=== PATIENT | female | born 1945 | race Caucasian/White ===

== ENCOUNTER 2019-05-24 12:04 | Inpatient (IN) ==
[2019-05-24] MEDS ORDERED: ATIVAN IV ONE (14:10)
[2019-05-24 14:13] LABS: URINE SOURCE CLEAN CATCH
--- NOTE | 2019-05-24 14:19 | Diag Imaging Result Doc PS360 ---
EXAM: CHEST-1 VIEW HISTORY: pre-op TECHNIQUE: Single view COMPARISON: 03/27/2017 FINDINGS: The lungs are well expanded. The right hemidiaphragm is elevated. The heart is not enlarged. The vessels are not distended. There are no infiltrates. No effusion identified. IMPRESSION: Negative exam. Electronically signed by Chucky Gold 05/24/2019 2:17 PM
[2019-05-24 14:21] LABS: BILIRUBIN URINE NEGATIVE (NEGATIVE); BLOOD URINE SMALL (NEGATIVE); COLOR YELLOW; GLUCOSE URINE NEGATIVE (NEGATIVE); KETONE URINE NEGATIVE (NEGATIVE); LEUKOCYTES URINE MODERATE (NEGATIVE); NITRITE URINE NEGATIVE (NEGATIVE); PH URINE 5.5; PROTEIN URINE TRACE mg/dL (NEGATIVE); SP GRAVITY URINE 1.009; TURBIDITY URINE HAZY (CLEAR); UROBILINOGEN URINE NORMAL (NORMAL)
[2019-05-24] MEDS ORDERED: ZOFRAN IV PRN (14:28)
[2019-05-24] MEDS ORDERED: OXY IR PO PRN (14:30)
[2019-05-24 14:32] LABS: UR EPITHELIAL CELLS <10 /HPF (<10); URINE BACTERIA NEGATIVE /HPF; URINE RBC <10 /HPF (<10); URINE WBC 20-40 /HPF (<10)
--- NOTE | 2019-05-24 14:36 | PROVIDER DOCUMENTATION ---
This chart was entered by Maddison Brown Scribe, acting as scribe for Yogi Iniguez MD. HPI-Musculoskeletal Pain/Inj - GENERAL Chief Complaint: Extremity Injury Stated Complaint: HIP PAIN-FALL@HOME Time Seen by Provider: 05/24/19 13:00 Source: patient - HX OF PRESENT ILLNESS-MUSKULOSKELTAL Nature of Presenting Problem: Patient is a 74 year old female who presents with left hip pain. States she slipped and fell landing on left hip. Reports being seen by PCP and had a xray that showed a left hip fracture. Quality of Pain: reports: aching Severity in ED: mild Onset/Duration: this morning Timing: still present Any recent injury?: Yes (fall ) Locality of Occurance: Home Similar Symptoms Previously?: Yes Recently seen or treated by another doctor?: Yes - FALL INJURY Location of Pain/Injury: reports: other (left hip) Pain Radiation: reports: no radiation Reason for Fall: reports: slipped Loss of Consciousness: no loss of consciousness - HIP/PELVIS PAIN/INJURY Hip Pain Location: reports: hip (L) Pain Radiation: reports: no radiation Context / Method of Injury: reports: fall - LOWER EXTREMITY PAIN/INJURY Lower Extremities Pain: hip: left Context / Method of Injury: reports: fell Review of Systems - Adult - REVIEW OF SYSTEMS - ADULT Constitutional: reports: no symptoms reported Eyes: reports: no symptoms reported Ears, Nose, Mouth & Throat: reports: no symptoms reported Cardiovascular: reports: no symptoms reported Respiratory: reports: no symptoms reported Gastrointestinal: reports: no symptoms reported Genitourinary: reports: no symptoms reported Musculoskeletal: reports: see HPI, other (left hip pain). denies: back pain, neck pain Integumentary: reports: no symptoms reported Neurological: reports: no symptoms reported Psychiatric: reports: no symptoms reported Endocrine: reports: no symptoms reported Hematologic/Lymphatic: reports: no symptoms reported Allergic/Immunologic: reports: no symptoms reported All Other Systems: Reviewed and Negative Past History - Adult - PAST MEDICAL HISTORY-ADULT Review of Records: reports: Old Records Reviewed, Nursing Assessment Review, Medications Reviewed, Social history reviewed & non-contributory. Major Childhood Illnesses: reports: denies history Cardiovascular: reports: denies history Respiratory: reports: denies history Gastrointestinal: reports: denies history Obstetrical/Gynecological: reports: denies history Genitourinary: reports: denies history Musculoskeletal: reports: denies history Neurological: reports: denies history Endocrine/Immune: reports: denies history Other Conditions: reports: denies history - IMMUNIZATION STATUS Childhood Immunizations: See Nurse Assessment Flu Vaccine: See Nurse Assessment - FAMILY HISTORY Family History: reviewed, not pertinent Physical Exam-Injury Related - Physical Exam-Injury Related Initial Vital Signs Reviewed: Yes General Appearance: alert, no apparent distress. negative: obtunded Head, Ears, Nose, Mouth & Throat: normocephalic/atraumatic, moist mucous membranes. negative: angioedema Neck: non-tender, full range of motion, normal inspection. negative: C-spine tenderness, limited range of motion Respiratory: chest non-tender, lungs clear, normal breath sounds. negative: wheezing, increased rate Cardiovascular: regular rate, rhythm, no murmur. negative: tachycardia Abdominal Exam: normal bowel sounds, non tender, soft. negative: rigid Extremity: tenderness (left groin), other (decreased ROM to left leg due to left hip pain). negative: pulse deficit Integumentary: normal color, warm/dry. negative: abrasion, laceration Neurologic: grossly normal. negative: aphasia, facial droop, sensory deficit Psych/Mental Status: normal mood/affect, oriented x 3. negative: anxious Progress - PLAN OF CARE/RESULTS Progress/Plan/Lab Results: Vital Signs - 8 hr 05/24/19 12:19 Temperature 98.4 F Pulse Rate 63 Respiratory Rate 16 Blood Pressure 169/80 O2 Sat by Pulse Oximetry 96 Laboratory Results - last 24 hr 05/24/19 05/24/19 13:14 14:04 POC Glucose 123 H Urine Source CLEAN CATCH Urine Color YELLOW Urine Turbidity HAZY Urine pH 5.5 Ur Specific [place] 1.009 Urine Protein TRACE A Ur Glucose (Stick) NEGATIVE Ur Ketones (Stick) NEGATIVE Urine Blood SMALL A Urine Nitrite NEGATIVE Urine Bilirubin NEGATIVE Urobilinogen Dipstick NORMAL Urine Leukocytes MODERATE A Urine WBC (Auto) 20-40 A Urine RBC (Auto) <10 U Epithel Cells (Auto) <10 Urine Bacteria (Auto) NEGATIVE Urine Crystals NONE SEEN Small Round Cells TRANS PRESENT Urine Casts NONE SEEN Urine Yeast-like Cells NONE SEEN Orders Category Date Time Status Admit [facility] Routine AdmDCTranf 05/24/19 14:28 Active Activity - Strict Bedrest ORDERED Care 05/24/19 14:28 Active FSBS/Accucheck Result AC + HS Care 05/24/19 14:28 Active Ricci Cath Insertion ORDERED Care 05/24/19 14:34 Active IV [Saline Loc] NOW Care 05/24/19 14:34 Active Intake and Output-Strict ORDERED Care 05/24/19 14:28 Active Nursing- MD Consult Request ROUTINE Care 05/24/19 14:30 Active Update & Confirm Home Medicati ROUTINE Care 05/24/19 14:34 Active Vital Signs Order Q 8-HR ASSESS Care 05/24/19 14:28 Active Z-Document. for Tele Applied ORDERED Care 05/24/19 14:30 Active Physician/Provider Consults Routine Cons 05/24/19 14:28 Ordered NPO Diet 05/24/19 13:59 Active CHEST-1 VIEW [RAD] Stat Exams 05/24/19 14:00 Completed CBC WITH DIFF [HEME] Routine Lab 05/25/19 06:00 Ordered CBC WITH ELECTRONIC DIFF [HEME] Stat Lab 05/24/19 13:59 Ordered COMPREHENSIVE METABOLIC PANEL [CHEM] Routine Lab 05/25/19 06:00 Ordered COMPREHENSIVE METABOLIC PANEL [CHEM] Stat Lab 05/24/19 13:59 Ordered FOLATE Routine Lab 05/24/19 14:31 Ordered FREE T4 Routine Lab 05/24/19 14:31 Ordered PROTIME WITH INR [COAG] Stat Lab 05/24/19 13:59 Ordered PTT [COAG] Stat Lab 05/24/19 13:59 Ordered TSH Routine Lab 05/25/19 06:00 Ordered URINALYSIS W/POSS RFLX CULT [URINALYSIS] Stat Lab 05/24/19 14:04 Completed URINE CULTURE [RM] Routine Lab 05/24/19 14:39 Ordered URINE MANUAL MICROSCOPIC [URINALYSIS] Stat Lab 05/24/19 14:04 Completed VITAMIN B12 Routine Lab 05/24/19 14:35 Ordered 0.9% Sodium Chloride Inj [Ns] 1,000 ml Med 05/24/19 14:45 Active IV 75 mls/hr Insulin Lispro [Humalog] Med 05/24/19 16:00 Active See Protocol SUBQ 0700,1100,1600,2100 Lorazepam [Ativan] Med 05/24/19 14:10 Discontinued 0.5 mg IV NOW ONE Lorazepam [Ativan] Med 05/24/19 14:32 Active 0.5 mg PO Q6H PRN PRN Ondansetron [Zofran] Med 05/24/19 14:28 Active 4 mg IV Q4H PRN PRN Oxycodone I.r. [Oxy Ir] Med 05/24/19 14:30 Active 5 mg PO Q4H PRN PRN Pantoprazole [Protonix] Med 05/24/19 15:00 Active 40 mg IV Q24H Sodium Chloride 0.9% Med 05/24/19 14:45 Active 10 ml INJ DIRECTED Telemetry [OM.EQ] Routine Oth 05/24/19 14:28 Active EKG [EKG] Stat Ther 05/24/19 13:59 Ordered Transfer/Admit Order [TRANSFER] Routine Transfer 05/24/19 14:36 Ordered - CONSULTS/PCP/HOSPITALIST Notification #1 *Consult/PCP/Hospitalist*: cecy/w YASMANI Zhou Time Discussed: 14:50 Consult Disposition: Admit #2 Consult: paged Dr Castillo Time Discussed: 14:50 Consult Disposition: other (call back @ 15:[address] George office, will see pt in hospital) Departure - Departure Date of Disposition Decision: 05/24/19 Time of Disposition Decision: 15:00 DIAGNOSIS: Subcapital fracture of left hip Disposition: ADMITTED INPATIENT 09 Certified Medical Emergency: Emergent Condition: Stable - Critical Care Note This patient required my direct & personal management of CC.: No Attestation - Physician/ [place] Attestation Patient care was provided by Advanced Practice Provider:: No The physician spent face to face time with patient:: Yes Advanced Practice Provider documentation review:: Supervising physician onsite and consulted in the evaluation and care of this patient. The physician did have a face to face encounter with the patient. This chart was documented by the indicated scribe, (Maddison Brown Scribe) and accurately reflects the services I performed and decisions made by , Yogi Iniguez MD, as attested by the provider's signature.
[2019-05-24 14:38] LABS: URINE CASTS NONE SEEN; URINE CRYSTALS NONE SEEN; URINE SMALL ROUND CELLS TRANS PRESENT; URINE YEAST NONE SEEN
--- NOTE | 2019-05-24 14:51 | HISTORY AND PHYSICAL ---
HISTORY OF PRESENT ILLNESS: She fell and suffered a left hip fracture, had left hip pain. She had a subcapital left femoral neck fracture. She did not lose consciousness, and she has no history of neurologic pathology, such as seizures or stroke in the past. She has hypertension, and I believe she is treated for diabetes. PAST SURGICAL HISTORY: I think she has had a hysterectomy and tubes tied. ALLERGIES: She has no known drug allergies. FAMILY HISTORY: They do not report any coronary or heart or lung or kidney disease. No trouble with anesthesia. SOCIAL HISTORY: Negative for alcohol and tobacco. No illicit drugs. Lives in [place]. REVIEW OF SYSTEMS: General: No weight gain or loss. No fever or chills. HEENT: Unremarkable. Respiratory: No increased work of breathing or dyspnea. Cardiovascular: No chest pain or tachy palpitation. Gastrointestinal/Genitourinary: No gross hematuria, dysuria. Musculoskeletal/Neurologic: No significant complaints. Endocrinologic/Hematologic: No significant history. PHYSICAL EXAMINATION: GENERAL: Awake, alert, well-developed, well-nourished, white female with no acute distress. HEENT: Pupils are equal and round. LUNGS: Clear in all lung law. CARDIOVASCULAR: Regular rhythm and rate without murmur or S3. ABDOMEN: Soft. SKIN: Warm and dry. EXTREMITIES: Left hip with some swelling. I externally rotated her foot, and some shortening compared to the right. VITAL SIGNS: Temperature 98.4 degrees, pulse 63, respirations 16, blood pressure 169/80. IMAGING AND LABORATORY DATA: Urine unremarkable. Chest x-ray negative. No sign of infiltrates. ASSESSMENT AND PLAN: Left hip fracture. Admit. Orthopedics to see. Will need open reduction internal fixation. Appears to be ready for surgery. Hemodynamically stable. Will continue her on her home medications. Will continue her on everything. She is on Cymbalta. I think we can hold the Zyrtec. Will keep her on her Lipitor. She takes Xanax 0.25 mg at night. Will let her have an Ativan 0.5 mg by mouth every hours as needed as she is having a hard time, she recently lost her , and a lot of anxiety. We are going to check a T4, TSH, B12, and folate, and will check a postoperative CBC. Her electrolytes and CBC, I think are pending at this time. We will give her some Oxy IR 5 mg by mouth every 3 hours as needed for pain, and she can have morphine at 2 mg intravenously every 3 hours as needed for severe pain. cc: Pranav Barrett MD
[2019-05-24] MEDS ORDERED: DILAUDID IV ONE (15:27)
[2019-05-24 16:03] LABS: BASO# 0.02 X1000 (0.0-0.2); BASO% 0.1 % (0.0-0.8); EOS# 0.02 X1000 (0.0-0.7); EOS% 0.1 % (0.0-10.0); HEMATOCRIT 41.3 % (37.0-47.0); HEMOGLOBIN 13.9 g/dL (12.0-16.0); IMM GRAN# 0.07 X1000 (0.0-0.04); IMM GRAN% 0.4 % (0.0-0.5); LYMPH# 1.22 X1000 (1.2-3.4); LYMPH% 7.1 % (20.5-51.1); MCH 29.3 PG (27-31); MCHC 33.7 g/dL (33-37); MCV 87.1 FL (81-99); MONO# 1.15 X1000 (0.11-0.59); MONO% 6.7 % (1.7-9.3); MPV 10.4 FL (7.4-10.4); NEUT# 14.81 X1000 (1.4-6.5); NEUT% 85.6 % (42.2-75.2); PLT 253 X1000 (130-400); RBC 4.74 XMIL (4.2-5.4); RDW 13.5 % (11.5-14.5); WBC 17.29 X1000 (4.8-10.8)
[2019-05-24 16:08] LABS: INR 1.03; PROTIME 13.7 Seconds (11.0-16.0)
[2019-05-24 16:09] LABS: PTT 26.7 Seconds (22.3-41.8)
[2019-05-24 16:15] LABS: AGAP 14; ALB/GLOB RATIO 1.8; ALBUMIN 4.6 g/dL (3.5-5.0); ALKALINE PHOSPHATASE 58 U/L (32-104); BUN 8 mg/dL (8-22); CALCIUM 9.7 mg/dL (8.8-10.2); CHLORIDE 100 mmol/L (98-107); COSMO 277; CREATININE 0.8 mg/dL (0.5-0.9); ESTIMATED GFR > 60; GLUCOSE 151 mg/dL (70-104); GOT 19 U/L (10-30); GPT 22 U/L (10-36); POTASSIUM 4.4 mmol/L (3.5-5.1); SODIUM 138 mmol/L (136-145); TCO2 24 mmol/L (25-35); TOTAL PROTEIN 7.1 g/dL (6.3-8.3)
[2019-05-24] MEDS ORDERED: KEFZOL 2 GM/D5W 2 GM/50 ML IVPB IV ONE (16:42)
--- NOTE | 2019-05-24 16:45 | EKG Report ---
Test Performed on : 05/24/2019 3:29:23 PM Test Reason : CP Blood Pressure : / mmHG Vent. Rate : 064 BPM Atrial Rate : 064 BPM P-R Int : 196 ms QRS Dur : 082 ms QT Int : 414 ms P-R-T Axes : 066 044 075 degrees QTc Int : 427 ms Normal sinus rhythm. with sinus arrhythmia. Cannot rule out Anterior infarct , age undetermined Abnormal ECG No previous ECGs available Unconfirmed Result
[2019-05-24] MEDS: HUMALOG SUBQ SCH ×2 (17:08→21:45)
[2019-05-24] MEDS: PROTONIX IV SCH (17:17)
[2019-05-24] MEDS: NS 1,000 ML IV SCH (17:26)
--- NOTE | 2019-05-24 19:42 | ORTHOPAEDICS CONSULTATION ---
DATE: 05/24/2019 CHIEF COMPLAINT: Left hip pain. HISTORY OF PRESENT ILLNESS: This is a 74-year-old female who came to the emergency department today for left hip pain after a fall. She reports that she had accidentally slipped on some wrapping paper and landed on her left hip. She denies LOC. She denies pain in any other extremity or part of her body. PAST MEDICAL HISTORY: The patient reports that she is diabetic. ALLERGIES: There are no known drug allergies. FAMILY HISTORY: Not pertinent. SOCIAL HISTORY: Negative for tobacco and alcohol. No illicit drug use. REVIEW OF SYSTEMS: Fourteen point review of systems was performed. Pertinent positives listed in HPI. PHYSICAL EXAMINATION: Vital Signs: Temperature 98.5 degrees, pulse rate 93, respiratory rate 16, blood pressure 125/59, oxygen saturations 95. General: Patient is awake and alert and sitting in the bed in no acute distress. HEENT: Head is atraumatic, normocephalic. Eyes equal, round and reactive to light. Lungs: There is equal chest expansion, rise and fall. Cardiovascular: Regular rate and rhythm. Abdomen: Soft, nontender. Skin: Warm and dry. Extremities: Left lower extremity exam: There is some tenderness on the left lateral hip. There is good range of motion about the hip. There is no obvious shortening that I can see. LABS: White blood cells 17.29, hemoglobin 13.9, hematocrit 41.3, platelets 253,000. INR is 1.03. Sodium 138, potassium 4.4, chloride 100, BUN is 8, creatinine 0.6, glucose 151. Urine shows trace protein, small amount of blood and moderate leukocytes consistent possible UTI. X-RAY: Review of x-rays show a subcapital left femoral neck fracture. ASSESSMENT: Left subcapital femoral neck fracture. PLAN: We will plan to do a percutaneous pinning of the left hip tomorrow around 0900. The patient agrees with this plan. The risks and benefits of surgery was went over with the patient. We will keep her NPO after midnight. She denies taking any type of blood thinner. She reports that she does take an aspirin 81 mg daily. We will see her in the morning for her surgery and check back on her afterwards. Dictated by YASMANI Bingham for Eric George MD cc: YASMANI Bingham MD
[2019-05-24] MEDS: OXY IR PO PRN (22:22)
[2019-05-25] MEDS: ATIVAN PO PRN ×2 (00:20→22:52)
[2019-05-25] MEDS: OXY IR PO PRN (04:12)
[2019-05-25] MEDS: NS 1,000 ML IV SCH ×3 (05:34→20:34)
[2019-05-25 06:38] LABS: BASO# 0.04 X1000 (0.0-0.2); BASO% 0.4 % (0.0-0.8); EOS# 0.44 X1000 (0.0-0.7); EOS% 4.2 % (0.0-10.0); HEMATOCRIT 39.1 % (37.0-47.0); IMM GRAN# 0.03 X1000 (0.0-0.04); IMM GRAN% 0.3 % (0.0-0.5); LYMPH# 1.81 X1000 (1.2-3.4); LYMPH% 17.2 % (20.5-51.1); MCH 29.2 PG (27-31); MCHC 33.2 g/dL (33-37); MCV 87.9 FL (81-99); MONO# 0.85 X1000 (0.11-0.59); MONO% 8.1 % (1.7-9.3); MPV 10.1 FL (7.4-10.4); NEUT# 7.35 X1000 (1.4-6.5); NEUT% 69.8 % (42.2-75.2); PLT 239 X1000 (130-400); RBC 4.45 XMIL (4.2-5.4); RDW 13.6 % (11.5-14.5); WBC 10.52 X1000 (4.8-10.8)
[2019-05-25] MEDS: HUMALOG SUBQ SCH ×4 (06:42→22:52)
[2019-05-25 07:15] LABS: AGAP 11; ALB/GLOB RATIO 1.8; ALBUMIN 3.9 g/dL (3.5-5.0); ALKALINE PHOSPHATASE 56 U/L (32-104); BUN 10 mg/dL (8-22); CALCIUM 8.6 mg/dL (8.8-10.2); CHLORIDE 104 mmol/L (98-107); COSMO 278; CREATININE 0.8 mg/dL (0.5-0.9); ESTIMATED GFR > 60; GLUCOSE 187 mg/dL (70-104); GOT 14 U/L (10-30); GPT 16 U/L (10-36); POTASSIUM 3.8 mmol/L (3.5-5.1); SODIUM 137 mmol/L (136-145); TCO2 22 mmol/L (25-35); TOTAL BILIRUBIN 0.46 mg/dL (0.20-1.00); TOTAL PROTEIN 6.1 g/dL (6.3-8.3)
[2019-05-25] MEDS ORDERED: XYLOCAINE-MPF 2% ONE (07:59)
[2019-05-25] MEDS ORDERED: DECADRON ONE ×2 (07:59→09:19)
[2019-05-25] MEDS ORDERED: TORADOL ONE (07:59)
[2019-05-25] MEDS ORDERED: ZOFRAN ONE ×2 (07:59→10:16)
[2019-05-25] MEDS ORDERED: DIPRIVAN 1% ONE (08:00)
[2019-05-25] MEDS ORDERED: FENTANYL ONE ×2 (08:00→10:38)
[2019-05-25] MEDS ORDERED: VERSED ONE (08:58)
[2019-05-25] MEDS ORDERED: KEFZOL 1 GM/D5W 2 GM/100 ML IVPB ONE (08:59)
[2019-05-25] MEDS ORDERED: MARCAINE 0.25% PF ONE (09:07)
[2019-05-25] MEDS ORDERED: OFIRMEV 1000 MG/ISOTONIC SOLN 1,000 MG/100 ML BOTTLE ONE (09:17)
[2019-05-25] MEDS ORDERED: ROBINUL ONE ×2 (09:27→09:31)
[2019-05-25] MEDS ORDERED: EPHEDRINE ONE (09:45)
[2019-05-25] MEDS ORDERED: OXY IR PO PRN (12:13)
[2019-05-25] MEDS ORDERED: MILK OF MAGNESIA PO PRN (12:13)
[2019-05-25] MEDS ORDERED: MORPHINE IV PRN (12:13)
[2019-05-25] MEDS ORDERED: ZOFRAN IV PRN (12:13)
[2019-05-25] MEDS ORDERED: HALDOL IV PRN (12:15)
[2019-05-25] MEDS ORDERED: NS 1,000 ML IV SCH (12:15)
--- NOTE | 2019-05-25 13:02 | OPERATIVE NOTE ---
PROCEDURE DATE: 05/25/2019 PREOPERATIVE DIAGNOSIS: Impacted left femoral neck fracture. POSTOPERATIVE DIAGNOSIS: Impacted left femoral neck fracture. PROCEDURE: Closed reduction percutaneous pinning, left hip. COMPLICATIONS: None. SURGEON: Jerod George MD ANESTHESIA: General. PROCEDURE IN DETAIL: 74-year-old female with an impacted left femoral neck fracture presents for surgical stabilization and fixation. Risks, benefits, and no guarantees were discussed and she is willing to proceed. She was taken the operating room and satisfactory anesthesia obtained. She was placed on the [place] table and left hip prepped and draped in usual sterile fashion. The fracture was imaged with fluoroscopic guidance and noted to be an impacted femoral neck fracture with minimal displacement. After prep and drape, a time-out was taken to confirm operative site, procedure, and patient. A 1 inch incision was made opposite the lesser trochanter on the lateral thigh and dissection carried down to the lateral aspect of the proximal femoral cortex. Under multiplanar image guidance, three 7.3 cannulated screws guidewires were advanced in a triangular fashion across the fracture in the femoral neck and into the femoral head. Three 80 length screws with partial threads were inserted over this with secure fixation of all 3 screws. The C-arm was used to verify accurate hardware placement as well as avoidance of any joint penetration. The guidewires were removed and the wound irrigated and cauterized and then closed in layers with #1 Vicryl in the deep fascia and skin adan on the skin. Sterile dressings were applied. She was recovered from anesthesia and transferred to the recovery room in stable condition. No intraoperative complications were noted. Instrument count and sponge count was correct at the time of closure. cc: Eric George MD
--- NOTE | 2019-05-25 14:25 | PROGRESS NOTE ---
DATE: 05/25/2019 Today Ms. Egan referred to be doing well. No new complaint except pain in the left hip. Ms. gEan refers that she sustained a mechanical fall trying to wrap up some gifts and then her feet got entangled with some of the papers and she fell, hitting the left side, was unable to get up immediately, was brought in and was evaluated, saw that she had a left subcapital femoral neck fracture. This morning she was sent to the OR. She underwent closed reduction and percutaneous pinning of the left hip by Dr. George. She seems to be doing remarkably well after the surgery. The son was at the bedside at the time of this encounter. OBJECTIVE: Vital signs: Blood pressure is 123/63, pulse of 79, respiration is 18, temperature is 98.6 degrees. General: Ms. Egan is a 74-year-old female. She is in bed, no distress. Mucosa is pink and moist. Anicteric. Acyanotic. Neck: Supple. Chest: Good air entry bilaterally. No crepitations. No rhonchi. Cardiovascular: Regular rate and rhythm. No murmurs, no rubs, no gallops. Abdomen: Soft, nontender. Bowel sounds present. Extremities: No pedal edema. The left hip has a dressing over the surgical incision and there is just mild postsurgical changes. LABORATORY DATA: CBC is completely unremarkable. Chemistry is also reviewed unremarkable. CURRENT MEDICATIONS: Have all been reviewed. ASSESSMENT: 1. Status post mechanical fall resulting into a left subcapital femoral neck fracture. Patient is status post closed reduction and percutaneous pinning of the left hip by Dr. George. The patient is just immediate postop. She seems to be doing well. There is a plan to hopefully get her to rehab. 2. Dyslipidemia. The patient is on atorvastatin. 3. Hypertension, controlled on lisinopril. 4. Diabetes mellitus. The patient is on Januvia and metformin at home. Metformin has been withheld. The patient is currently on insulin regimen. 5. The general plan is to get Physical Therapy to evaluate Ms. Egan tomorrow based on Orthopedics recommendation and we will get social work also to evaluate her for rehab placement, hopefully get Ms. Egan discharged within the next 24 to 48 hours. cc: Lars Vargas MD
[2019-05-25] MEDS: SODIUM CHLORIDE 0.9% INJ SCH (15:45)
[2019-05-25] MEDS: PROTONIX IV SCH (15:45)
[2019-05-25] MEDS: TYLENOL PO SCH ×2 (15:47→16:45)
[2019-05-25] MEDS: KEFZOL 1 GM/D5W 1 GM/50 ML IVPB IV SCH ×2 (15:48→16:47)
[2019-05-25] MEDS: COLACE PO SCH (20:33)
[2019-05-25] MEDS: DESYREL PO SCH (20:34)
[2019-05-25] MEDS: XANAX PO SCH (20:34)
[2019-05-25] MEDS: PERIDEX MT SCH (20:34)
[2019-05-26] MEDS: KEFZOL 1 GM/D5W 1 GM/50 ML IVPB IV SCH (02:01)
[2019-05-26 07:22] LABS: HEMATOCRIT 31.2 % (37.0-47.0); HEMOGLOBIN 10.5 g/dL (12.0-16.0)
[2019-05-26] MEDS ORDERED: XARELTO PO ONE (07:44)
[2019-05-26 07:51] LABS: AGAP 12; BUN 8 mg/dL (8-22); CALCIUM 8.7 mg/dL (8.8-10.2); CHLORIDE 103 mmol/L (98-107); COSMO 276; CREATININE 0.6 mg/dL (0.5-0.9); ESTIMATED GFR > 60; GLUCOSE 166 mg/dL (70-104); POTASSIUM 4.1 mmol/L (3.5-5.1); SODIUM 137 mmol/L (136-145); TCO2 22 mmol/L (25-35)
--- NOTE | 2019-05-26 07:52 | ORTHOPAEDICS PROGRESS NOTE ---
DATE: 05/26/2019 SUBJECTIVE: The patient is a pleasant 74-year-old female who is 1 day status post closed reduction percutaneous pinning left hip per Dr. George. She is currently resting comfortably. OBJECTIVE: On physical exam, patient's left hip has dressing intact. Calf is soft. She has active dorsiflexion and plantar flexion. IMPRESSION: Postop day #1 status post closed reduction percutaneous pinning left hip. PLAN: At this point we will consult Spear Fisher for discharge planning. The patient will be partial weightbearing left lower extremity. cc: Zi Stone MD
[2019-05-26] MEDS: TYLENOL PO SCH ×3 (08:10→21:31)
[2019-05-26] MEDS: HUMALOG SUBQ SCH ×4 (08:12→21:00)
[2019-05-26] MEDS: NS 1,000 ML IV SCH (09:05)
[2019-05-26 09:27] LABS: HEMOGLOBIN A1C 6.4 % (4.8-6.0)
--- NOTE | 2019-05-26 10:23 | PROGRESS NOTE ---
DATE: 05/26/2019 SUBJECTIVE: This morning Ms. Pa refers to be doing a lot better. Denies any new complaints. She said Orthopedics has already come to evaluate her. She has not had any bowel movement for the past 2 days. There was no family member at the bedside at the time of the encounter. OBJECTIVE: Vital Signs: Blood pressure is 122/72, pulse 67, respiration is 18, temperature is 97.9 degrees. General: Ms. Pa is a 74-year-old female. She is in bed in no distress. HEENT: Mucosa is pink and moist. Anicteric. Acyanotic. Neck: Supple. Chest: Good air entry bilateral. Did not hear any crepitations, no rhonchi. Cardiovascular: Regular rate and rhythm. No murmurs, no rubs, no gallops. GI: Abdomen is soft, slightly distended but nontender. Bowel sounds present. There is an old infraumbilical surgical scar. Extremities: No pedal edema. There is a recent sterile dressing over the left hip from the recent orthopedic intervention. MANAGER LOCATION: Patient is awake, alert, oriented. There is no focal neurological deficit. The patient is neurovascularly intact on the left lower extremity. LABORATORY DATA: Laboratory data has been reviewed. Hemoglobin is 10.5. Chemistry is completely unremarkable. Patient's A1c is 6.4. Microbiology data shows urine culture is no growth. CURRENT MEDICATIONS: Have all been reviewed. No changes. The patient has been started on Xarelto for DVT prophylaxis after orthopedic surgery. ASSESSMENT: 1. Status post mechanical fall resulting into a left subcapital femoral neck fracture. Patient is status post closed reduction and percutaneous pinning of the left hip. Today is day 1 postop. 2. Diabetes mellitus with A1c of 6.4. The patient is currently on her oral hypoglycemic agent. Metformin has been withheld, however. 3. Hypertension, controlled on lisinopril. 4. Dyslipidemia. Patient is on atorvastatin. 5. Deep venous thrombosis prophylaxis after orthopedic surgery with Xarelto will be initiated tomorrow. 6. Constipation. Patient has been started on Colace and milk of magnesia. We will wait for adequate response. PLAN: So for today Ms. Pa is doing fairly okay. We will be waiting on physical therapy evaluation. She seems to be slightly constipated, so she has been started on a bowel regimen. We will hopefully be able to remove the Ricci catheter tomorrow and plan her discharge to rehab within the next 24 to 48 hours. cc: Lars Vargas MD
[2019-05-26] MEDS: JANUVIA PO SCH (10:57)
[2019-05-26] MEDS: PERIDEX MT SCH ×2 (10:57→21:30)
[2019-05-26] MEDS: ZYRTEC PO SCH (10:57)
[2019-05-26] MEDS: FERROUS SULFATE PO SCH (10:58)
[2019-05-26] MEDS: ASPIRIN PO SCH (10:58)
[2019-05-26] MEDS: CYMBALTA PO SCH (11:05)
[2019-05-26] MEDS: BENEFIBER PACKET PO SCH (17:06)
[2019-05-26] MEDS: SODIUM CHLORIDE 0.9% INJ SCH (17:06)
[2019-05-26] MEDS: PROTONIX IV SCH (17:06)
[2019-05-26] MEDS ORDERED: LIPITOR PO SCH (21:00)
[2019-05-26] MEDS: COLACE PO SCH (21:30)
[2019-05-26] MEDS: XANAX PO SCH (21:30)
[2019-05-26] MEDS: DESYREL PO SCH (21:31)
[2019-05-27] MEDS: ATIVAN PO PRN (00:18)
[2019-05-27] MEDS ORDERED: XARELTO PO SCH (06:00)
[2019-05-27] MEDS: TYLENOL PO SCH (06:42)
[2019-05-27] MEDS: HUMALOG SUBQ SCH ×2 (07:00→12:40)
[2019-05-27 07:06] LABS: HEMATOCRIT 30.3 % (37.0-47.0); HEMOGLOBIN 10.3 g/dL (12.0-16.0)
[2019-05-27 08:33] VITALS: BP 141/67
[2019-05-27] MEDS: FERROUS SULFATE PO SCH (08:35)
[2019-05-27] MEDS: CYMBALTA PO SCH (08:35)
[2019-05-27] MEDS: PERIDEX MT SCH (08:35)
[2019-05-27] MEDS: ASPIRIN PO SCH (08:35)
[2019-05-27] MEDS: JANUVIA PO SCH (08:35)
[2019-05-27] MEDS: BENEFIBER PACKET PO SCH (08:35)
[2019-05-27] MEDS: ZYRTEC PO SCH (08:36)
--- NOTE | 2019-05-27 12:10 | ORTHOPAEDICS PROGRESS NOTE ---
DATE: 05/27/2019 SUBJECTIVE DATA: Ms. Egan is seen postop of her left hip pinning. She reports she is doing well. She states she has been up walking in the [place] without any difficulty. She denies pain, nausea, or vomiting at this time. OBJECTIVE DATA: There is good sensation of the left lower extremity. There are good pedal pulses. There is negative Homans sign. There is no pain with calf squeeze. The bandages are clean and dry. There is good capillary refill in the toes. ASSESSMENT: Impacted left femoral neck fracture with hip pinning. PLAN: At this point, Ms. Egan is okay to be discharge from us. She will need to follow up in the office when she gets out of rehab for repeat x-rays and evaluation. She is to be partial weightbearing at this time. We would like her to build up her strength and to get to where she can function at home normally. We will see her back on an outpatient basis. Dictated by YASMANI Bingham for Eric George MD cc: YASMANI Bingham MD
--- NOTE | 2019-05-27 12:17 | DISCHARGE SUMMARY ---
ADMISSION DATE: 05/24/2019 DISCHARGE DATE: 05/27/2019 DISPOSITION: [facility] rehab. FOLLOWUP: 1. Dr. Kvng Hui. 2. Dr. George. CONSULTATION DURING THIS ADMISSION: Orthopedics was consulted, patient was seen by Dr. George, followed up by Dr. Stone. INVASIVE PROCEDURES DONE DURING THIS ADMISSION: Closed reduction and percutaneous pinning of the left hip was done by Dr. George on 05/25/2019. ADMISSION DIAGNOSIS: Left hip fracture. DIAGNOSES AT THE TIME OF DISCHARGE: 1. Status post mechanical fall resulting into a left subcapital femoral neck fracture. Patient is status post closed reduction and percutaneous pinning of the left hip. 2. Diabetes mellitus with presenting A1c of 6.4. 3. Hypertension, controlled. 4. Dyslipidemia. 5. Constipation, improved. 6. Deep venous thrombosis prophylaxis with Xarelto. PRESENTING COMPLAINT: Fall. HISTORY OF PRESENTING COMPLAINT: Ms. Egan is a 74-year-old female with multiple comorbidities including hypertension and diabetes, presented to the emergency department after she sustained a fall, hitting the left side of her body. Immediately she could not get up and bear any weight. She was brought into the emergency room where she was evaluated. Imaging studies were also done which showed a left hip fracture. Ms. Egan was subsequently admitted to the medical floor for further management. HOSPITAL COURSE: Ms. Egan was evaluated by Orthopedics. A decision was made to intervene surgically on her fractures. This was done successfully by Dr. George. Please refer to the details of Dr. George's surgical report in her chart. Postoperatively, Ms. Egan continues to improve. She was seen on multiple occasions by Physical Therapy. This morning she has been able to do 90 feet with minimum assist, partial weightbearing and a front wheel walker. We think she is stable enough to be discharged to rehab to continue with her physical anabaptism. At the time of the discharge, Ms. Egan's blood count was 10.3 and her chemistries showed glucose was 125. Clinically, she is fairly stable. Blood pressure is 141/67, pulse of 69, respiration is 14, temperature 97.8 degrees. DISCHARGE MEDICATIONS: All her discharge medications have also been reviewed. They include: 1. Alprazolam 0.25 p.o. at bedtime. 2. Atorvastatin 10 mg p.o. daily. 3. Duloxetine 25 mg p.o. daily. 4. Lisinopril 10 mg p.o. daily. 5. Metformin 500 mg p.o. daily. 6. Januvia 100 mg p.o. daily. 7. Aspirin 81 mg p.o. daily. 8. Trazodone 75 mg p.o. at bedtime. 9. Benefiber. 10. Oxycodone 5 mg p.o. q.3 p.r.n. 11. Iron sulfate 325 p.o. daily. 12. Xarelto 10 mg p.o. daily. 13. Colace 200 mg p.o. at bedtime. DISCHARGE INSTRUCTIONS: All the discharge instructions have been discussed with her. The daughter was at the bedside. They both voiced understanding. TIME SPENT: For discharge is 35 minutes. cc: MD Eric Wong MD Alan Walker, MD
== END 2019-05-27 12:51 | DRG 482 ==
LOC: ED 12:04 → 4N 14:44 → SUATTDRO 14:44
PROVIDERS: ATTEND Internal Medicine